=== PATIENT | male | born 1955 | race Caucasian/White ===

== ENCOUNTER 2018-07-29 01:31 | Inpatient (IN) | payer OTHER ==
[2018-07-29] VITALS (72 sets, daily range): BP systolic 54–156; BP diastolic 35–104
[~2018-07-29] VITALS: Ht 149.9 cm; Wt 46.8 kg
--- NOTE | ~2018-07-29 | HC ---
[facility] [place] [address] CONSULTATION Name: RICHY DANIELS Room #: 236-P ADM IN M.R.#: [id number] Admission: 07/29/18 Attend Phys: Myles Interiano MD Discharge: Date of : 59 Report #: [id number] THIS REPORT FOR: //name// CC: Myles Killian DATE OF SERVICE: 07/31/2018 HISTORY OF PRESENT ILLNESS: This is a 63-year-old male patient who is unable to provide any history. I talked to the nurses looking after this patient and talked to the patient's family. The patient is being evaluated to prognosticate the patient for hypoxic encephalopathy. This patient was noticed to have a question of seizure. He is on propofol. He is unresponsive. REVIEW OF SYSTEMS: Indicates that the patient has a diagnosis of multiple myeloma. He had multiple reactions secondary to chemotherapy. He had some difficulty with swallowing. From all indications, it does not look like the quality of the life is very good even prior to this happening. A 14-point review of system was carried out the best it could be. The patient has a history of multiple myeloma. PAST MEDICAL HISTORY: Positive for multiple myeloma. FAMILY HISTORY: Negative for early age stroke. SOCIAL HISTORY: He does not smoke or drink any alcohol. PHYSICAL EXAMINATION: The patient's examination indicates that he is unresponsive. I could not get any reaction to the pupil or reflexes. He is intubated. The rest of the examination is very difficult to carry out at this time. LABORATORY DATA: I reviewed his multiple workups. His EEG still shows activity and he did have a CT scan on admission and that does not show any edema. IMPRESSION: Hypoxic encephalopathy in a patient who has compromised quality of life because of multiple myeloma. Presently, the patient's EEG still demonstrates activity and CT scan does not show any edema. We will repeat the EEG over a period of few days to prognosticate him and probably repeat the CAT scan tomorrow to see if we can document any edema or damage. It will take several more days to fully prognosticate the patient. [address] [address] CONSULTATION Name: VANESA DANIELSASPEN DUNNEJESSICA Room #: 236-P [facility] IN ..#: [id number] Admission: 07/29/18 Attend Phys: Myles Interiano MD Discharge: Date of : 59 Report #: [id number] All of it was discussed with the family and they understand that very well and want to follow this plan. By: 1559 0132 Yury Schmidt MD /nt
--- NOTE | ~2018-07-29 | 2DMMODE ---
[facility] [address] [place] [address] 2 D/M-MODE ECHOCARDIOGRAM Name: JEREMIAHRICHY Room #: 236-P ADM IN M.R.#: [id number] Admission: 07/29/18 Attend Phys: Myles Interiano MD Discharge: Date of : 59 Date of Service: 07/30/18 0820 Report #: [id number] THIS REPORT FOR: //name// APPROVED REPORT Study performed: 07/29/2018 08:43:50 EXAM: Comprehensive 2D, Doppler, and color-flow Echocardiogram Patient Location: Bedside Room #: 236 Status: on-call BSA: 1.37 HR: 50 bpm BP: 90/63 mmHg Rhythm: RBBB Other Information Study Quality: Adequate Technically limited study due to pt.on ventilator and hypothermia protocol. Risk Factors: Cardiac Risk Factors: HTN Indications Abnormal ECG CAD S/P Cardiac Arrest Cancer 2D Dimensions IVSd: 10.08 (7-11mm) LVOT Diam: 18.00 (18-24mm) LVDd: 39.31 mm PWd: 9.50 (7-11mm) Ascending Ao: 26.43 (22-36mm) LVDs: 24.21 (25-40mm) Aortic Root: 28.42 mm LV Single Plane 4CH: 68.28 % LV Single Plane 2CH: 67.48 % Biplane EF: 69.3 % Aortic Valve AoV Peak Raoul.: 1.06 m/s AO Peak Gr.: 4.47 mmHg LVOT Max P.08 mmHg LVOT Max V: 0.88 m/s JEAN Vmax: 2.08 cm2 [facility] [address] [address] 2 D/M-MODE ECHOCARDIOGRAM Name: RICHY DANIELS Room #: 236-[facility] IN [facility]#: [id number] Admission: 07/29/18 Attend Phys: Myles Interiano MD Discharge: Date of : 59 Date of Service: 07/30/18 0820 Report #: [id number] Mitral Valve E/A Ratio: 1.0 MV Decel. Time: 236.83 ms MV E Max Raoul.: 0.80 m/s MV A Raoul.: 0.80 m/s MV PHT: 68.68 ms IVRT: 69.20 ms Pulmonary Valve PV Peak Raoul.: 0.94 m/s PV Peak Gr.: 3.53 mmHg Tricuspid Valve TR Peak Raoul.: 2.73 m/s TR Peak Gr.: 29.73 mmHg Left Ventricle The left ventricle is normal size. There is normal LV segmental wall motion. There is normal left ventricular wall thickness. Left ventricular systolic function is normal. The left ventricular ejection fraction is within the normal range. LVEF is 65-70%. The left ventricular diastolic function is normal. Right Ventricle The right ventricle is normal size. The right ventricular systolic function is normal. Atria The left atrium size is normal. The right atrium size is normal. Aortic Valve The aortic valve is normal in structure. No aortic regurgitation is present. There is no aortic valvular stenosis. Mitral Valve The mitral valve is normal in structure. There is no mitral valve regurgitation noted. No evidence of mitral valve stenosis. Tricuspid Valve The tricuspid valve is normal in structure. Moderate tricuspid regurgitation. Tricuspid regurgitant jet is 30 mmHg. Pulmonic Valve The pulmonary valve is normal in structure. There is no pulmonic valvular regurgitation. [facility] [address] [place] [address] 2 D/M-MODE ECHOCARDIOGRAM Name: RICHY DANIELS Room #: 236-P [facility] IN M.R.#: [id number] Admission: 07/29/18 Attend Phys: Myles Interiano MD Discharge: Date of : 59 Date of Service: 07/30/18 0820 Report #: [id number] Great Vessels The aortic root is normal in size. IVC is not visualized. Pericardium There is no pericardial effusion. <Conclusion> The left ventricle is normal size. LVEF is 65-70%. The left ventricular diastolic function is normal. The right ventricle is normal size. The left atrium size is normal. The aortic valve is normal in structure. There is no mitral valve regurgitation noted. Moderate tricuspid regurgitation. Tricuspid regurgitant jet is 30 mmHg. The aortic root is normal in size. There is no pericardial effusion. <ELECTRONICALLY SIGNED> By: Zeus Merino MD, FACC 07/30/18819 9 9 Zeus Merino MD, FACC /INF
--- NOTE | ~2018-07-29 | EKG ---
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: anshu : 1955 Requested By: Tiffanie Hall Order Number: [id number] MD: Alex Verduzco Measurements Intervals [place] Rate: 34 P: [place]: QRS: 89 QRSD: 144 T: 80 QT: 594 QTc: 447 Interpretive Statements Junctional bradycardia Right bundle branch block No previous ECG available for comparison Electronically Signed On 07-31-2018 8:52:33 CDT by Alex Verduzco [email or web address] <ELECTRONICALLY SIGNED> By: Alex Verduzco MD, [facility] 07/31/18 0852 0143 0143 Alex Verduzco MD, FACC /EPI
--- NOTE | ~2018-07-29 | EKG ---
[place] [address] [facility] [place] [address] ELECTROCARDIOGRAM REPORT Name: RICHY DANIELS Room #: 236-P ADM IN M.R.#: [id number] Admission: 07/29/18 Attend Phys: Myles Interiano MD Discharge: Date of : 59 Report #: [id number] THIS REPORT FOR: //name// [facility] Test Date: 2018-07-30 Test Time: 09:17:58 Pat Name: RICHY DANIELS Department: Room: 236 P Gender: M Registration Manager: SAUL : 1955 Requested By: Zeus Merino Order Number: [id number] MD: Alex Verduzco Measurements Intervals [place] Rate: 66 P: [place]: QRS: 84 QRSD: 113 T: 85 QT: 557 QTc: 584 Interpretive Statements Sinus rhythm Borderline intraventricular conduction delay Abnrm T, consider ischemia, anterolateral lds ST elevation, consider lateral injury Prolonged QT interval No previous ECG available for comparison Electronically Signed On 07-31-2018 9:16:18 CDT by Alex Verduzco [email or web address] <ELECTRONICALLY SIGNED> By: Alex Verduzco MD, [facility] 07/31/18915 6 6 Alex Verduzco MD, [facility] /EPI
--- NOTE | ~2018-07-29 | HC ---
[facility] [place] [address] CONSULTATION Name: RICHY DANIELS JR Room #: 236-P ADM IN M.R.#: [id number] Admission: 07/29/18 Attend Phys: Myles Interiano MD Discharge: Date of : 59 Report #: [id number] THIS REPORT FOR: //name// CC: Myles Killian DATE OF SERVICE: 07/29/2018 LOCATION: ICU. HISTORY OF PRESENT ILLNESS: The patient is a 63-year-old male who is admitted with status post cardiac arrest, found to be PEA. I believe there was one round of epinephrine and paramedics were summoned. Apparently, the patient has an aggressive multiple myeloma with significant weight loss, anorexia, in a hospital bed at home. He was trying to take a sip of water last night, seemed to have a choking spell and then became relatively unresponsive. This is speaking with the and daughter. There was some aulot-ft-paaly breathing, but no real effective CPR for probably 6-8 minutes according to talking with the daughter. Although he is now intubated and is actually withdrawing pain medication and sedation and seems to be waking up. He has had some extreme lability of his hyper and hypotensive episodes here. EKG had some bradydysrhythmias and atrial dysrhythmias, but now sinus rhythm, sinus darrick with early repolarization. He does not have documented coronary artery disease. Apparently, he has been intolerant of some of the chemotherapy agents and he was 5 feet 5 inches or 5 feet 6 inches last year and now 4 feet 11 inches due to significant compression and aggressive bony involvement from the multiple myeloma. He is intubate only, no CPR. He has not had any significant cardiac history. ALLERGIES: REVLIMID. CURRENT MEDICATIONS: Acyclovir, dexamethasone, sotalol 80 b.i.d., amlodipine 5, and multivitamin. PAST MEDICAL HISTORY: Positive for the myeloma. Prior to this diagnosis a year ago he was extremely healthy. SOCIAL HISTORY: He is with children. No alcohol or tobacco use. LABORATORY DATA: He was initially acidotic and hyperkalemic. These are improving. PHYSICAL EXAMINATION: GENERAL: He is slowly awakening on a ventilator. They have initiated hypothermia protocol and we are considering withdrawing of this. VITAL SIGNS: Blood pressure is currently 140/100, pulse is 60s. [facility] [address] [place] [address] CONSULTATION Name: RICHY DANIELS Room #: 236-P [facility] IN .R.#: [id number] Admission: 07/29/18 Attend Phys: Myles Interiano MD Discharge: Date of : 59 Report #: [id number] HEENT: Eyes reveal xanthelasmas. Pharynx is clear. 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 Pharynx is clear and dry. LUNGS: Clear anteriorly. CARDIAC: Regular rate and rhythm, S1, S2. ABDOMEN: Slightly distended, nontender. At least he does not withdraw to any pain or rebound. EXTREMITIES: Reveal no edema. Distal pulses diminished. NEUROLOGIC: he will follow some simple commands and open his eyes slowly, still has some sedation on board. DIAGNOSTIC DATA: His most recent EKG is sinus rhythm, sinus darrick with early repolarization. ASSESSMENT: 1. Out of hospital arrest, appears to be hypoxemia driven. 2. Pulseless electrical activity, which has resolved. 3. Multiple myeloma with aggressive compression and metastatic disease. 4. Generally debilitated state. 5. Hyperkalemia, correcting. RECOMMENDATIONS AND PLAN: Repeating lab. Continue with hypothermia protocol. Could use dopamine if he becomes bradycardic again due to the hypothermia, although he is waking up. Preliminarily, the echo Doppler looks to be relatively normal. I do not see significant valvular LV dysfunction. I have discussed the above with the daughter and . We will continue to follow with you. His cardiovascular status appears to be not the culprit in this setting, but we will follow. By: 1006 2254 Zeus Merino MD, FACC /nt
--- NOTE | ~2018-07-29 | EEG ---
[facility] [place] [address] ELECTROENCEPHALOGRAM Name: RICHY DANIELS Room #: 236-P [facility] IN M.R.#: [id number] Admission: 07/29/18 Attend Phys: Myles Interiano MD Discharge: Date of : 59 Report #: [id number] THIS REPORT FOR: //name// [facility] DATE OF SERVICE: 07/31/2018 This patient has hypoxic encephalopathy and is having some jerking movements. EEG was done by placing the electrode by standard 10/20 system of electrode placement. Both referential and sequential montages were used for recording. A lot of muscle artifact was present, making the interpretation of the EEG very difficult. Background activity appeared to be about 5-6 Hz. Photic stimulation is unremarkable. It is tough to rule out epileptiform activity because of the above described muscle artifact. IMPRESSION: This is an abnormal EEG, which would be consistent with a diagnosis of encephalopathy. However, well-defined cortical activity is present. It is difficult to rule out the seizure because of lot of artifact. If there is clinical indication, an EEG with paralyzing is then should be done. By: 1406 1446 Yury Schmidt MD /nt
--- NOTE | ~2018-07-29 | EKG ---
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 07/31/18 0854 0738 07 Alex Verduzco MD, FACC /EPI
--- NOTE | ~2018-07-29 | HC ---
[facility] [place] [address] CONSULTATION Name: RICHY DANIELS Room #: 236-P ADM IN M.R.#: [id number] Admission: 07/29/18 Attend Phys: Myles Interiano MD Discharge: Date of : 59 Report #: [id number] THIS REPORT FOR: //name// CC: Myles Killian MD DATE OF SERVICE: 07/30/2018 ATTENDING PHYSICIAN: Dr. Interiano. REASON FOR CONSULTATION: Sepsis, status post cardiorespiratory arrest. HISTORY OF PRESENT ILLNESS: A 63-year-old [place] man with history of multiple myeloma since 05/2017, suffered cardiorespiratory arrest at home. He is now in the intensive care unit, intubated on cooling protocol. He is on broad-spectrum antibiotic coverage. Blood cultures obtained through a Port-A-Cath yesterday revealed growth of yeast. DRUG ALLERGIES: LENALIDOMIDE (FEVER, HYPOTENSION, SHORTNESS OF BREATH). MEDICATIONS: The patient is currently on treatment with Levaquin 750 mg IV every 48 hours, Diflucan 200 mg IV daily, vancomycin 500 mg IV daily, Zosyn 3.375 grams IV every 12 hours, also receiving treatment with dopamine, vecuronium, Levophed, chlorhexidine oral care, Atrovent and albuterol inhalation treatments, p.r.n. ondansetron, propofol sedation. PAST MEDICAL HISTORY: Multiple myeloma diagnosed a year ago. Status post Port-A-Cath. Status post percutaneous gastrostomy suspecting that the patient may be suffering aspiration. SOCIAL HISTORY: Unable to obtain. FAMILY HISTORY: Unable to obtain. REVIEW OF SYSTEMS: Unable to obtain. PHYSICAL EXAMINATION: GENERAL: Chronically ill-appearing man in the intensive care unit, intubated through oral cavity cooling protocol. VITAL SIGNS: Temperature 97.9 on admission, pulse 52, respirations 24, BP 155/100. Intake 2880 and output 3200 mL per NG tube or percutaneous gastrostomy. O2 saturation is 100% on FiO2 40%. HEENMT: Head normocephalic, atraumatic. Pupils equal, not reactive, arcus cornealis. Mouth, intubated through oral cavity, unable to examine. NECK: Supple. [facility] [address] [place] [address] CONSULTATION Name: RICHY DANIELS Room #: 236-[facility] IN [facility].#: [id number] Admission: 07/29/18 Attend Phys: Myles Interiano MD Discharge: Date of : 59 Report #: [id number] LUNGS: Few rhonchi. HEART: S1, S2. No gallop or murmur. ABDOMEN: Percutaneous gastrostomy soft, no masses or megaly. GENITALIA: Severino catheter in place. RECTAL: Deferred. EXTREMITIES: No clubbing or cyanosis. LABORATORY DATA: On admission, potassium 6.3, CO2 was 21. Today, sodium 145, potassium 4.5, BUN 59, creatinine 1.5. On admission, his creatinine was 2.3 mg/dL. Glucose on admission 274, 113 now. SGOT 223, lipase 299, calcium 7.2, ALT 118. Albumin 1.8 g/dL. Total protein 9 g/dL, lactic acid 2.1 millimoles per liter. Drug screen negative. WBC 5300, hemoglobin 8.2 g/dL, MCV elevated at 101.3. Platelet count decreased at 86,000. The white blood cell count differential revealed 85% segmented neutrophils, 8% bands. The urinalysis revealed specific gravity of 1.015, pH 7, 1+ protein, 2+ blood, 3-10 rbc's per HPF, 1-9 bacteria per HPF. ABGs on admission pH 7.09, pCO2 of 58, pO2 379, bicarbonate 17, lactate 7.26 millimoles per liter. These set of gases on FiO2 of 100%. ABGs obtained later on that day revealed pH 7.33, pCO2 of 39, pO2 of 252, bicarbonate 20.6, lactate 2.71. These set of gases on FiO2 70%, 5 of PEEP. MICROBIOLOGY DATA: One out of 2 blood cultures obtained through Port-A-Cath revealed growth of yeast. Sputum culture is pending. RADIOLOGY EVALUATION: A CT scan of the brain revealed cerebral atrophy, no acute findings. Chest x-ray revealed ET tube 1 cm above the helene, right-sided Port-A-Cath, multiple lines and tubes and opacification right chest. Reviewed chest x-ray and there appears to be some cardiomegaly and right-sided Port-A-Cath, some interstitial infiltrate. A repeat chest x-ray later on the day again revealed 2 roundish lesions on the right chest, which can represent neoplasm, loculated pleural effusion or infiltrate. Right-sided Port-A-Cath, endotracheal tube and a feeding gastrostomy. ASSESSMENT: 1. Status post cardiorespiratory arrest requiring intubation. 2. Possible anoxic encephalopathy. 3. Fungemia. 4. History of multiple myeloma. 5. Right-sided pulmonary infiltrate versus malignancy versus loculated pleural effusion. SUGGESTIONS: Recommend continue coverage with Levaquin, vancomycin, Zosyn and Diflucan. Removal of Port-A-Cath if feasible. Prognosis is poor. Survival doubtful. [facility] [address] [place] [address] CONSULTATION Name: RICHY DANIELS JR Room #: 236-P ADM IN .R.#: [id number] Admission: 07/29/18 Attend Phys: Myles Interiano MD Discharge: Date of : 59 Report #: [id number] Interiano thank you for requesting my suggestions. <ELECTRONICALLY SIGNED> By: Israel Morocho MD 07/31/18 1026 0609 2154 Israel Morocho MD /nt
[2018-07-29 02:03] LABS: ABSOLUTE NEUTROPHILS 7.1 thou/uL (1.4-8.2); BASOPHILS 0.6 % (0.0-2.0); HEMATOCRIT 29.5 % (42.0-52.0); HEMOGLOBIN 9.2 gm/dL (14.0-18.0); LYMPHOCYTES 27.1 % (24.0-44.0); MCH 33.9 pg (26.0-34.0); MCHC 31.2 g/dL (28.0-37.0); MCV 108.7 fL (80.0-100.0); MONOCYTES 8.2 % (1.0-8.0); PLATELET COUNT 122 thou/uL (150-400); POLYS 64.1 % (36.0-66.0); RBC 2.71 mil/uL (4.50-6.00); RDW 17.2 % (10.5-14.5)
[2018-07-29 02:10] LABS: URINE BILIRUBIN NEGATIVE (Negative); URINE BLOOD 2+ (Negative); URINE CLARITY CLEAR; URINE COLOR YELLOW; URINE GLUCOSE-RANDOM* NEGATIVE (Negative); URINE KETONES NEGATIVE (Negative); URINE LEUKOCYTES-REFLEX NEGATIVE (Negative); URINE NITRITE-REFLEX NEGATIVE (Negative); URINE PROTEIN (DIPSTICK) 1+ (Negative); URINE SPECIFIC GRAVITY 1.015 (1.005-1.035); URINE UROBILINOGEN 0.2 E.U./dl (0.2-1.0)
[2018-07-29 02:16] LABS: ANION GAP 11 mmol/L (7-16); BUN 71 mg/dL (7-18); CALCIUM 10.2 mg/dL (8.5-10.1); CHLORIDE 109 mmol/L (98-107); CO2 21 mmol/L (21-32); CREATININE 2.3 mg/dL (0.7-1.3); DIRECT BILIRUBIN 0.1 mg/dL (<0.1-0.3); GLUCOSE 274 mg/dL (74-106); LIPASE 299 U/L (73-393); SGOT 229 U/L (15-37); SGPT 98 U/L (30-65); SODIUM 141 mmol/L (136-145); TOTAL BILIRUBIN 0.3 mg/dL (<0.1-1.0); TOTAL PROTEIN 10.1 g/dL (6.4-8.2); TROPONIN-I <0.06 ng/mL (<0.06)
[2018-07-29 02:19] LABS: POTASSIUM 6.3 mmol/L (3.5-5.1)
[2018-07-29 02:27] LABS: AMP/METHAMP Negative (Negative); BARBITURATES Negative (Negative); BENZODIAZEPINES Negative (Negative); COCAINE Negative (Negative); METHADONE Negative (Negative); OPIATES Negative (Negative); PCP Negative (Negative)
[2018-07-29 02:28] LABS: BACTERIA-REFLEX 1-9 Few /HPF (None Seen); CASTS None Seen /LPF (None Seen); COARSE GRANULAR CASTS 0-3 Few /LPF (None Seen); CRYSTALS None Seen /LPF (None Seen); FINE GRANULAR CASTS 0-3 Few /LPF (None Seen); SQUAMOUS 0-3 Few /LPF (0-3); URINE RBC 3-10 Few /HPF (0-2)
[2018-07-29 02:29] LABS: URINE WBC-REFLEX None Seen /HPF (0-5)
[2018-07-29 02:29] LABS: APTT 30.9 Seconds (24.5-32.8); INR 1.1; PROTIME 11.1 Seconds (9.3-11.4)
[2018-07-29 02:45] LABS: BE(vivo) -12.4 mmol/L (-2 to +3); HCO3 17.5 mmol/L (22.0-26.0); PCO2 58.9 mmHg (35.0-45.0); PO2 379.6 mmHg (80.0-100.0); sO2 99.7 % (92.0-98.0)
[2018-07-29 02:46] LABS: pH 7.091 (7.360-7.450)
[2018-07-29 02:57] LABS: ANISOCYTOSIS 1+
[2018-07-29] MEDS ORDERED: ACYCLOVIR 400400 MG PER TUBE (03:33)
[2018-07-29] MEDS ORDERED: DEXAMETHASONE 22 M1 PER TUBE (03:34)
[2018-07-29] MEDS ORDERED: SORINE 80 MG TA80 M1 PER TUBE (03:35)
[2018-07-29] MEDS ORDERED: NORVASC5 MG PER TUBE (03:35)
[2018-07-29] MEDS ORDERED: DEXAMETHASONE 44 M1 PER TUBE (03:35)
[2018-07-29] MEDS ORDERED: CENTRUM ADULTS1 EACH PER TUBE (03:36)
[2018-07-29 06:29] LABS: FIBRINOGEN 343.3 mg/dL (210-360)
[2018-07-29 06:37] LABS: D-DIMER 17.62 ug/mLFEU (0.19-0.50)
[2018-07-29 07:59] LABS: BE(vivo) -8.3 mmol/L (-2 to +3); HCO3 21.1 mmol/L (22.0-26.0); PCO2 65.5 mmHg (35.0-45.0); PO2 200.6 mmHg (80.0-100.0); pH 7.126 (7.360-7.450)
[2018-07-29 08:44] LABS: BE(vivo) -5.9 mmol/L (-2 to +3); HCO3 21.3 mmol/L (22.0-26.0); PCO2 50.7 mmHg (35.0-45.0); PO2 260.1 mmHg (80.0-100.0); pH 7.241 (7.360-7.450); sO2 99.5 % (92.0-98.0)
[2018-07-29 09:11] LABS: HEMOGLOBIN 8.9 gm/dL (14.0-18.0); MCH 35.6 pg (26.0-34.0); MCHC 34.2 g/dL (28.0-37.0); MCV 104.2 fL (80.0-100.0); RBC 2.5 mil/uL (4.50-6.00); RDW 16.7 % (10.5-14.5); WBC 9.7 thou/uL (4.0-11.0)
[2018-07-29 09:18] LABS: ALBUMIN 1.8 g/dL (3.4-5.0); CALCIUM 8.4 mg/dL (8.5-10.1); CREATININE 1.7 mg/dL (0.7-1.3); TOTAL BILIRUBIN 0.3 mg/dL (<0.1-1.0)
[2018-07-29 09:22] LABS: POTASSIUM 6.3 mmol/L (3.5-5.1)
[2018-07-29 09:34] LABS: BE(vivo) -4.8 mmol/L (-2 to +3); HCO3 20.6 mmol/L (22.0-26.0); PCO2 39.3 mmHg (35.0-45.0); PO2 252.3 mmHg (80.0-100.0); pH 7.338 (7.360-7.450); sO2 99.5 % (92.0-98.0)
[2018-07-29 10:43] LABS: CALCIUM 8.2 mg/dL (8.5-10.1); CREATININE 1.6 mg/dL (0.7-1.3); MAGNESIUM 2.5 mg/dL (1.8-2.4)
[2018-07-29 14:10] LABS: MCH 35.2 pg (26.0-34.0); MCHC 34.6 g/dL (28.0-37.0); MCV 101.7 fL (80.0-100.0); PLATELET COUNT 91 thou/uL (150-400); RBC 2.26 mil/uL (4.50-6.00); RDW 16.7 % (10.5-14.5); WBC 6.6 thou/uL (4.0-11.0)
[2018-07-29 14:24] LABS: INR 1.1; PROTIME 11.6 Seconds (9.3-11.4)
[2018-07-29 14:33] LABS: CALCIUM 8.3 mg/dL (8.5-10.1); CREATININE 1.6 mg/dL (0.7-1.3); MAGNESIUM 2.4 mg/dL (1.8-2.4); PHOSPHORUS 7.6 mg/dL (2.5-4.9); POTASSIUM 5.2 mmol/L (3.5-5.1); TROPONIN-I 0.06 ng/mL (<0.06)
[2018-07-29 14:43] LABS: ABSOLUTE NEUTROPHILS 6.3 thou/uL (1.4-8.2); MACROCYTES 1+; METAMYELOCYTES 1 %
[2018-07-29 14:44] LABS: ANISOCYTOSIS 1+
[2018-07-29 18:19] LABS: ABSOLUTE NEUTROPHILS 5.3 thou/uL (1.4-8.2); BASOPHILS 0.2 % (0.0-2.0); HEMATOCRIT 23.2 % (42.0-52.0); LYMPHOCYTES 3.7 % (24.0-44.0); MCH 35.1 pg (26.0-34.0); MCHC 34.7 g/dL (28.0-37.0); MCV 101.2 fL (80.0-100.0); MONOCYTES 3.1 % (1.0-8.0); PLATELET COUNT 85 thou/uL (150-400); RBC 2.29 mil/uL (4.50-6.00); RDW 16.4 % (10.5-14.5); WBC 5.7 thou/uL (4.0-11.0)
[2018-07-29 18:37] LABS: INR 1.1; PROTIME 11.4 Seconds (9.3-11.4)
[2018-07-29 18:41] LABS: ANION GAP 7 mmol/L (7-16); BUN 65 mg/dL (7-18); CALCIUM 7.8 mg/dL (8.5-10.1); CHLORIDE 114 mmol/L (98-107); CO2 22 mmol/L (21-32); CREATININE 1.6 mg/dL (0.7-1.3); GLUCOSE 105 mg/dL (74-106); MAGNESIUM 2.4 mg/dL (1.8-2.4); PHOSPHORUS 7.1 mg/dL (2.5-4.9); POTASSIUM 4.7 mmol/L (3.5-5.1); SODIUM 143 mmol/L (136-145); TROPONIN-I <0.06 ng/mL (<0.06)
[2018-07-30] VITALS (87 sets, daily range): BP systolic 64–155; BP diastolic 34–104
[2018-07-30 00:58] LABS: HEMATOCRIT 23.6 % (42.0-52.0); HEMOGLOBIN 8.2 gm/dL (14.0-18.0); MCH 35.2 pg (26.0-34.0); MCHC 34.7 g/dL (28.0-37.0); MCV 101.3 fL (80.0-100.0); PLATELET COUNT 86 thou/uL (150-400); RBC 2.33 mil/uL (4.50-6.00); RDW 16.5 % (10.5-14.5); WBC 5.3 thou/uL (4.0-11.0)
[2018-07-30 01:05] LABS: CALCIUM 7.2 mg/dL (8.5-10.1); CREATININE 1.5 mg/dL (0.7-1.3); MAGNESIUM 2.1 mg/dL (1.8-2.4); PHOSPHORUS 6.7 mg/dL (2.5-4.9); POTASSIUM 4.5 mmol/L (3.5-5.1)
[2018-07-30 01:14] LABS: APTT 26.3 Seconds (24.5-32.8); INR 1.2; PROTIME 11.4 Seconds (9.3-11.4)
[2018-07-30 01:30] LABS: ABSOLUTE NEUTROPHILS 4.9 thou/uL (1.4-8.2); ANISOCYTOSIS 1+; PLATELET ESTIMATE DECREASED; TOXIC GRANULATION 1+
[2018-07-30 06:29] LABS: ABSOLUTE NEUTROPHILS 4.4 thou/uL (1.4-8.2); HEMATOCRIT 22.6 % (42.0-52.0); HEMOGLOBIN 7.9 gm/dL (14.0-18.0); LYMPHOCYTES 1.9 % (24.0-44.0); MCH 35.1 pg (26.0-34.0); MCHC 35.1 g/dL (28.0-37.0); MCV 100.1 fL (80.0-100.0); MONOCYTES 3.1 % (1.0-8.0); PLATELET COUNT 78 thou/uL (150-400); RBC 2.26 mil/uL (4.50-6.00); RDW 16.6 % (10.5-14.5); WBC 4.6 thou/uL (4.0-11.0)
[2018-07-30 06:45] LABS: CALCIUM 7.4 mg/dL (8.5-10.1); CREATININE 1.5 mg/dL (0.7-1.3); MAGNESIUM 2.1 mg/dL (1.8-2.4); PHOSPHORUS 5.2 mg/dL (2.5-4.9); POTASSIUM 3.6 mmol/L (3.5-5.1)
[2018-07-30 06:46] LABS: APTT 28.3 Seconds (24.5-32.8); INR 1.1; PROTIME 11.7 Seconds (9.3-11.4)
[2018-07-31] VITALS (40 sets, daily range): BP systolic 88–122; BP diastolic 50–90
[2018-07-31 05:52] LABS: PLATELET COUNT 61 thou/uL (150-400); RDW 16.5 % (10.5-14.5); WBC 2.5 thou/uL (4.0-11.0)
[2018-07-31 05:54] LABS: MCH 34.8 pg (26.0-34.0); MCHC 34.5 g/dL (28.0-37.0); MCV 100.8 fL (80.0-100.0); RBC 1.81 mil/uL (4.50-6.00)
[2018-07-31 05:55] LABS: CALCIUM 6.5 mg/dL (8.5-10.1); CREATININE 1.5 mg/dL (0.7-1.3)
[2018-07-31 05:58] LABS: HEMATOCRIT 18.2 % (42.0-52.0); HEMOGLOBIN 6.3 gm/dL (14.0-18.0)
[2018-07-31 08:31] LABS: ABSOLUTE NEUTROPHILS 2.4 thou/uL (1.4-8.2); ANISOCYTOSIS 2+; LARGE PLATELETS FEW; NUCLEATED RBCS 2 /100WBC; PLATELET ESTIMATE DECREASED
[2018-08-01] VITALS (41 sets, daily range): BP systolic 87–130; BP diastolic 51–86
[2018-08-01 06:04] LABS: MCH 34.3 pg (26.0-34.0); MCHC 33.5 g/dL (28.0-37.0); MCV 102.4 fL (80.0-100.0); RBC 1.75 mil/uL (4.50-6.00); RDW 17.1 % (10.5-14.5)
[2018-08-01 06:06] LABS: HEMATOCRIT 17.9 % (42.0-52.0)
[2018-08-01 06:09] LABS: CALCIUM 7.2 mg/dL (8.5-10.1); CREATININE 1.7 mg/dL (0.7-1.3)
[2018-08-01 06:11] LABS: POTASSIUM 2.9 mmol/L (3.5-5.1)
[2018-08-02 07:00] VITALS: BP 109/72
[2018-08-02 08:00] VITALS: BP 113/75
[2018-08-02 09:01] VITALS: BP 134/90
[2018-08-02 10:00] VITALS: BP 121/71
[2018-08-02 11:01] VITALS: BP 106/65
== END 2018-08-02 17:00 | DRG 870 ==
LOC: ER 01:31 → EROBS 04:40 → ICU 04:40
PROVIDERS: Emergency Medicine; Hospitalist; Internal Medicine Pulmonary Disease; Nurse Practitioner Family; Pediatrics
PROC: 5A1955Z Respiratory Ventilation, Greater than 96 Consecutive Hours (ICD-10-PCS; principal; 2018-07-29)
PROC: 0BH17EZ Insertion of Endotracheal Airway into Trachea, Via Natural or Artificial Opening (ICD-10-PCS; principal; 2018-07-29)
PROC: 02HV33Z Insertion of Infusion Device into Superior Vena Cava, Percutaneous Approach (ICD-10-PCS; principal; 2018-07-29)
PROC: 5A12012 Performance of Cardiac Output, Single, Manual (ICD-10-PCS; 2018-08-02)
DX: A41.9 Sepsis, unspecified organism (principal); J96.01 Acute respiratory failure with hypoxia; E43 Unspecified severe protein-calorie malnutrition; G92 Toxic encephalopathy; J96.02 Acute respiratory failure with hypercapnia; J69.0 Pneumonitis due to inhalation of food and vomit; D62 Acute posthemorrhagic anemia; N17.9 Acute kidney failure, unspecified; C90.00 Multiple myeloma not having achieved remission; B49 Unspecified mycosis; G93.1 Anoxic brain damage, not elsewhere classified; Z51.5 Encounter for palliative care; E87.6 Hypokalemia; R56.9 Unspecified convulsions; E87.5 Hyperkalemia; R00.1 Bradycardia, unspecified; N18.9 Chronic kidney disease, unspecified; I12.9 Hypertensive chronic kidney disease with stage 1 through stage 4 chronic kidney disease, or unspecified chronic kidney disease; I46.9 Cardiac arrest, cause unspecified; Z92.21 Personal history of antineoplastic chemotherapy; Z88.8 Allergy status to other drugs, medicaments and biological substances; Z79.899 Other long term (current) drug therapy; Z85.118 Personal history of other malignant neoplasm of bronchus and lung; Z85.830 Personal history of malignant neoplasm of bone; Z87.01 Personal history of pneumonia (recurrent); Z86.14 Personal history of Methicillin resistant Staphylococcus aureus infection; Z68.20 Body mass index [BMI] 20.0-20.9, adult
CPT/HCPCS: 10078; 27000